=== PATIENT | female | born 1975 | race Caucasian/White ===

== ENCOUNTER 2017-02-07 12:01 | Emergency (ER) | payer BC ==
[~2017-02-07] VITALS: Ht 162.6 cm; Wt 66.5 kg
[~2017-02-07 12:01] MED LIST: METF500T4 PO; MIRA25TA PO; NITR100C57 PO; OMEP-110 PO
[2017-02-07] MEDS ORDERED: ONDANSETRON 2MG/ML, 2ML IVPush ONE (13:00)
[2017-02-07] MEDS ORDERED: SODIUM CHLORIDE 0.9% 1,000ML IVBOLUS ONE (13:00)
[2017-02-07] MEDS ORDERED: SODIUM CHLORIDE FLUSH 10ML SYR IVF ONE (13:00)
[2017-02-07] MEDS ORDERED: NALOXONE 0.4 MG/ML, 1ML IVPush ONE (13:00)
[2017-02-07] MEDS ORDERED: MAALOX/HYOSCYAMINE/LIDOCAINE 45 ML BTL PO ONE (13:00)
[2017-02-07] MEDS ORDERED: MAALOX/HYOSCYAMINE/LIDOCAINE 45 ML BTL ONE (13:14)
[2017-02-07] MEDS ORDERED: ONDANSETRON 2MG/ML, 2ML ONE (13:14)
[2017-02-07 13:56] LABS: HEMATOCRIT 43.3 % (34.6-47.8); HEMOGLOBIN 14.5 g/dL (11.7-16.4); WHITE BLOOD COUNT 5.7 x10^3/uL (3.4-10)
[2017-02-07 14:05] LABS: ASPARTATE AMINO TRANSFERASE 14 U/L (15-37); BLOOD UREA NITROGEN 14 mg/dL (7-18)
[2017-02-07 15:09] VITALS: BP 117/55
== END 2017-02-07 15:32 | disposition home or self-care (01) ==
LOC: ED 13:06
DX: R10.13 Epigastric pain (principal); R11.0 Nausea; E11.9 Type 2 diabetes mellitus without complications; Z88.0 Allergy status to penicillin; Z88.1 Allergy status to other antibiotic agents; Z88.8 Allergy status to other drugs, medicaments and biological substances
CPT/HCPCS: 36415; 80053; 81003; 83690; 85025; 96361; 96374; 99284; J2405; J7030

== ENCOUNTER 2019-07-11 16:57 | Inpatient (IN) | payer BC ==
[~2019-07-11] VITALS: Ht 162.6 cm; Wt 66.4 kg
[~2019-07-11 16:57] MED LIST changes: +METF500T17 PO; -METF500T4 PO
--- NOTE | 2019-07-11 17:54 | NUR ---
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
[2019-07-11] MEDS ORDERED: PROMETHAZINE 25 MG/ML, 1ML ONE (18:05)
[2019-07-11 18:29] LABS: BASOPHILS # (AUTO) 0.07 x10^3/uL (0-0.1); BASOPHILS % (AUTO) 1 % (0-1); EOSINOPHILS # (AUTO) 0.06 x10^3/uL (0-0.4); EOSINOPHILS % (AUTO) 1 % (1-7); LYMPHOCYTES # (AUTO) 1.43 x10^3/uL (1-3.4); LYMPHOCYTES % (AUTO) 16 % (22-44); MD NO; MEAN CORPUSCULAR HEMOGLOBIN 30.6 pg (27.0-34.8); MEAN CORPUSCULAR HGB CONC 33.1 g/dL (32.4-35.8); MEAN CORPUSCULAR VOLUME 92.6 fL (80-100); MEAN PLATELET VOLUME 9.2 fL (7.4-10.4); MONOCYTES # (AUTO) 0.34 x10^3/uL (0.2-0.8); MONOCYTES % (AUTO) 4 % (2-9); NEUTROPHILS # (AUTO) 7.22 x10^3/uL (1.8-6.8); NEUTROPHILS % (AUTO) 79 % (42-75); PLATELET COUNT 269 x10^3/uL (130-400); RED BLOOD COUNT 5.35 x10^6/uL (3.82-5.3); RED CELL DISTRIBUTION WIDTH 13.3 % (9.6-15.2)
[2019-07-11] MEDS ORDERED: SODIUM CHLORIDE 0.9% 1,000ML IVBOLUS ONE (18:30)
[2019-07-11] MEDS ORDERED: PROMETHAZINE 25 MG/ML, 1ML IM ONE (18:30)
[2019-07-11] MEDS ORDERED: SODIUM CHLORIDE FLUSH 10ML SYR IVF ONE (18:30)
[2019-07-11 18:38] LABS: ALANINE AMINOTRANSFERASE 26 U/L (12-78); ALBUMIN 4.5 g/dL (3.4-5.0); ANION GAP 8 mmol/L (5-15); CALCIUM 9.6 mg/dL (8.5-10.1); CHLORIDE 107 mmol/L (98-107); CREATININE 1.07 mg/dL (0.55-1.02)
[2019-07-11 18:40] LABS: ALKALINE PHOSPHATASE 90 U/L (45-117); BILIRUBIN,TOTAL 0.7 mg/dL (0.2-1.0); TOTAL PROTEIN 8.5 g/dL (6.4-8.2)
[2019-07-11 18:56] LABS: ACETONE, SERUM Negative (Negative)
[2019-07-11] MEDS ORDERED: ONDANSETRON 2MG/ML, 2ML ONE (19:06)
[2019-07-11] MEDS ORDERED: MORPHINE SULFATE 4 MG/ML, 1ML ONE ×2 (19:09→21:04)
[2019-07-11] MEDS: MORPHINE SULFATE 4 MG/ML, 1ML IVPush PRN ×2 (19:13→21:10)
[2019-07-11] MEDS ORDERED: ONDANSETRON 2MG/ML, 2ML IVPush ONE (19:30)
[2019-07-11] MEDS ORDERED: MAALOX/HYOSCYAMINE/LIDOCAINE 45 ML BTL ONE (20:15)
[2019-07-11] MEDS ORDERED: FAMOTIDINE 20 MG/2 ML ONE (20:15)
[2019-07-11] MEDS ORDERED: FAMOTIDINE 20 MG/2 ML IVPush ONE (20:30)
[2019-07-11] MEDS ORDERED: MAALOX/HYOSCYAMINE/LIDOCAINE 45 ML BTL PO ONE (20:30)
[2019-07-11] MEDS ORDERED: PROMETHAZINE 25 MG/ML, 1ML IM PRN (22:00)
[2019-07-11] MEDS ORDERED: hydrALAzine 20 MG/ML, 1ML IVPush PRN (22:00)
[2019-07-11] MEDS ORDERED: morphine SULFATE 10 MG/ML, 1ML IVPush PRN (22:00)
[2019-07-11] MEDS: LACTATED RINGERS 1,000 ML IV SCH (22:00)
[2019-07-11] MEDS ORDERED: ACETAMINOPHEN 325 MG TABLET PO PRN (22:00)
[2019-07-11] MEDS ORDERED: D5%-0.9% NACL 1,000 ML IV SCH (22:00)
[2019-07-11] MEDS ORDERED: ONDANSETRON ODT 4 MG PO PRN (22:00)
[2019-07-11 22:25] LABS: FREE T4 (FREE THYROXINE) 1.28 ng/dL (0.76-1.46)
[2019-07-11] MEDS ORDERED: OMNIPAQUE 350 MG/ML, 100ML BOTTLE ONE (22:35)
[2019-07-11] MEDS: PANTOPRAZOLE 40 MG IV IVPush SCH (23:27)
[2019-07-12 00:07] LABS: MICROSCOPIC NOT IND
[2019-07-12 00:15] LABS: CULTURE INDICATED? NO
[2019-07-12 02:03] VITALS: BP 108/63
[2019-07-12 02:45] VITALS: BP 103/68
[2019-07-12] MEDS: ONDANSETRON 2MG/ML, 2ML IVPush PRN ×2 (05:19→11:48)
[2019-07-12 05:44] LABS: CALCIUM 7.3 mg/dL (8.5-10.1); CHLORIDE 112 mmol/L (98-107)
[2019-07-12 05:45] LABS: BASOPHILS # (AUTO) 0.03 x10^3/uL (0-0.1); BASOPHILS % (AUTO) 0 % (0-1); EOSINOPHILS % (AUTO) 1 % (1-7); LYMPHOCYTES # (AUTO) 2.41 x10^3/uL (1-3.4); LYMPHOCYTES % (AUTO) 31 % (22-44); MD NO; MEAN CORPUSCULAR HEMOGLOBIN 30.6 pg (27.0-34.8); MEAN CORPUSCULAR HGB CONC 33.2 g/dL (32.4-35.8); MEAN CORPUSCULAR VOLUME 92.2 fL (80-100); MEAN PLATELET VOLUME 9.3 fL (7.4-10.4); MONOCYTES # (AUTO) 0.54 x10^3/uL (0.2-0.8); MONOCYTES % (AUTO) 7 % (2-9); NEUTROPHILS % (AUTO) 61 % (42-75); PLATELET COUNT 227 x10^3/uL (130-400); RED BLOOD COUNT 4.21 x10^6/uL (3.82-5.3); RED CELL DISTRIBUTION WIDTH 13.5 % (9.6-15.2)
[2019-07-12 05:49] LABS: ALANINE AMINOTRANSFERASE 18 U/L (12-78); ALKALINE PHOSPHATASE 57 U/L (45-117); ANION GAP 6 mmol/L (5-15); BILIRUBIN,TOTAL 0.5 mg/dL (0.2-1.0); CHOL/HDL RATIO 2.4; CHOLESTEROL, TOTAL 139 mg/dL (140-239); CREATININE 0.78 mg/dL (0.55-1.02); HDL CHOL % 42 % (28-40); HDL CHOLESTEROL (DIRECT) 59 mg/dL (40-60); LDL CHOLESTEROL,CALCULATED 67 mg/dL (54-169); LDL/HDL RATIO 1.1 (0.5-3.0); TOTAL PROTEIN 5.7 g/dL (6.4-8.2); TRIGLYCERIDES 66 mg/dL (50-200); VLDL CHOLESTEROL 13 mg/dL (0-25)
[2019-07-12 07:20] VITALS: BP 106/69
[2019-07-12] MEDS: LACTATED RINGERS 1,000 ML IV SCH ×2 (07:30→23:36)
[2019-07-12] MEDS ORDERED: (Mirabegron** (Myrbetriq**) 25 MG) PO SCH (09:00)
[2019-07-12] MEDS ORDERED: NITROFURANTOIN 50 MG CAPSULE PO SCH (09:00)
[2019-07-12] MEDS: PANTOPRAZOLE 40 MG IV IVPush SCH ×3 (09:29→23:35)
[2019-07-12] MEDS: OXYcodone IR 5MG TABLET PO PRN ×2 (09:29→18:05)
[2019-07-12] MEDS ORDERED: DIPHENHYDRAMINE 50 MG/ML, 1ML IVPush PRN (12:30)
[2019-07-12] MEDS ORDERED: POTASSIUM PHOSPHATE 44 MEQ in SODIUM CHLORIDE 0.9% 500 ML IV ONE (13:30)
[2019-07-12 14:20] VITALS: BP 115/75
[2019-07-12 21:09] VITALS: BP 118/76
[2019-07-13 04:23] VITALS: BP 106/67
[2019-07-13 05:37] LABS: CALCIUM 7.7 mg/dL (8.5-10.1); CHLORIDE 109 mmol/L (98-107)
[2019-07-13 05:43] LABS: ALANINE AMINOTRANSFERASE 20 U/L (12-78); ALKALINE PHOSPHATASE 59 U/L (45-117); ANION GAP 6 mmol/L (5-15); BILIRUBIN,TOTAL 0.6 mg/dL (0.2-1.0); CREATININE 0.83 mg/dL (0.55-1.02); TOTAL PROTEIN 5.8 g/dL (6.4-8.2)
[2019-07-13 06:00] LABS: MD YES; MEAN CORPUSCULAR HEMOGLOBIN 30.8 pg (27.0-34.8); MEAN CORPUSCULAR HGB CONC 33.2 g/dL (32.4-35.8); MEAN CORPUSCULAR VOLUME 92.8 fL (80-100); MEAN PLATELET VOLUME 9.1 fL (7.4-10.4); PLATELET COUNT 216 x10^3/uL (130-400); RED BLOOD COUNT 4.23 x10^6/uL (3.82-5.3); RED CELL DISTRIBUTION WIDTH 13.4 % (9.6-15.2)
[2019-07-13] MEDS: LEVOTHYROXINE 25 MCG TABLET PO SCH ×2 (06:00→08:12)
[2019-07-13] MEDS: ONDANSETRON 2MG/ML, 2ML IVPush PRN (06:13)
[2019-07-13 07:13] LABS: <PLATELET ESTIMATE> ADEQUATE; <PLT MORPHOLOGY> NORMAL PLT MORPH; <RBC MORPHOLOGY> NORMAL; EOS#(MANUAL) 0.22 x10^3/uL (0.0-0.4); EOS% (MANUAL) 4 % (1-7); LYMPH#(MANUAL) 2.65 x10^3/uL (1-3.4); LYMPHS% (MANUAL) 49 % (22-44); MONOS#(MANUAL) 0.16 x10^3/uL (0.3-2.7); MONOS% (MANUAL) 3 % (2-9); SEG#(MANUAL) 2.38 x10^3/uL (1.8-6.8); SEGS% (MANUAL) 44 % (42-75)
[2019-07-13 07:35] VITALS: BP 113/75
[2019-07-13] MEDS: LACTATED RINGERS 1,000 ML IV SCH (08:05)
[2019-07-13] MEDS: PANTOPRAZOLE 40 MG IV IVPush SCH (08:12)
[2019-07-13] MEDS ORDERED: D5%-LACTATED RINGERS 1,000 ML IV SCH (10:30)
[2019-07-13 14:10] VITALS: BP 117/77
[2019-07-13] MEDS ORDERED: LEVO25TA2 PO (14:38)
[2019-07-13] MEDS ORDERED: ONDA4TAB7 PO (15:35)
== END 2019-07-13 16:02 | disposition home or self-care (01) | DRG 391 ==
LOC: ED 18:09 → EDIP 20:08 → INTOOBSV 20:08 → 4NE 21:25 → OBSVTOIN 07-12 11:40 → DCLOUNGE 07-13 15:50
PROVIDERS: ADMIT Internal Medicine; ATTEND Internal Medicine
DX: A08.4 Viral intestinal infection, unspecified (principal); N17.0 Acute kidney failure with tubular necrosis; E03.9 Hypothyroidism, unspecified; E11.9 Type 2 diabetes mellitus without complications; E83.39 Other disorders of phosphorus metabolism; E86.0 Dehydration; K21.9 Gastro-esophageal reflux disease without esophagitis; Z87.440 Personal history of urinary (tract) infections; Z90.710 Acquired absence of both cervix and uterus; Z88.0 Allergy status to penicillin; Z88.8 Allergy status to other drugs, medicaments and biological substances
CPT/HCPCS: 36415; 74240; 96372; 96374; 96375; 99285; J3490; J7121; 74177; 80053; 80061; 81003; 82010; 82962; 83036; 83690; 83735; 84100; 84439; 84443; 85025; G0378; J2405; J2550; Q9967; C9113; J1200; J2270; J7030; J7040; J7120